=== PATIENT | male | born 1975 | race Two or more races ===

== ENCOUNTER 2016-07-01 20:08 | Emergency (ER) | payer OTHER ==
[~2016-07-01] VITALS: Ht 170.2 cm; Wt 82.6 kg
[2016-07-01 20:36] VITALS: BP 113/79
--- NOTE | 2016-07-01 21:13 | PHYS DOC ---
Past Medical History Past Medical History: No Pertinent History Past Surgical History: No Surgical History Alcohol Use: Rarely Drug Use: None Adult General Chief Complaint Chief Complaint: FOOT INJURY PAIN [facility] HPI Patient is a 41 year old male presents to the emergency department stating that he has having right ankle pain and discomfort. He denies any trauma or injury. He states that he has increased pain when standing. He has not taken anything for pain and discomfort. Patient does have good sensation to the toes peripheral pulses 2+ cap refill brisk less than 2 seconds. Patient has not taken anything at home for pain and discomfort. His been occurring for the last 5 days. All information was obtained through network strategist at bedside. Review of Systems Review of Systems Constitutional: Denies fever or chills [] Eyes: Denies change in visual acuity, redness, or eye pain [] HENT: Denies nasal congestion or sore throat [] Respiratory: Denies cough or shortness of breath [] Cardiovascular: No additional information not addressed in HPI [] GI: Denies abdominal pain, nausea, vomiting, bloody stools or diarrhea [] : Denies dysuria or hematuria [] Musculoskeletal: Denies back pain. Right ankle pain and discomfort Integument: Denies rash or skin lesions [] Neurologic: Denies headache, focal weakness or sensory changes [] Allergies Allergies Allergies Coded Allergies Type Severity Reaction Last Updated Verified No Known Drug Allergies 07/01/16 No Physical Exam Physical Exam Constitutional: Well developed, well nourished, no acute distress, non-toxic appearance. [] HENT: Normocephalic, atraumatic, bilateral external ears normal, oropharynx moist, no oral exudates, nose normal. [] Eyes: PERRLA, EOMI, conjunctiva normal, no discharge. [] Neck: Normal range of motion, no tenderness, supple, no stridor. [] Cardiovascular:Heart rate regular rhythm, no murmur [] Lungs & Thorax: Bilateral breath sounds clear to auscultation [] Abdomen: Bowel sounds normal, soft, no tenderness, no masses, no pulsatile masses. [] Skin: Warm, dry, no erythema, no rash. [] Back: No tenderness Extremities: Right lateral ankle tenderness, no cyanosis, no clubbing, ROM intact, no edema. Peripheral pulses 2+ cap refill brisk < 2 seconds. Patient with movement of right ankle noted. No bruising or discoloration noted. Slight lateral swelling noted. Neurologic: Alert and oriented X 3, normal motor function, normal sensory function, no focal deficits noted. [] Psychologic: Affect normal, judgement normal, mood normal. [] Current Patient Data Vital Signs Vital Signs Date Time Temp Pulse Resp B/P Pulse Ox O2 Delivery O2 Flow Rate FiO2 07/01/16 20:36 98.2 80 18 97 Room Air 98.2 EKG EKG [] Radiology/Procedures Radiology/Procedures [] Course & Med Decision Making Course & Med Decision Making Pertinent Labs and Imaging studies reviewed. (See chart for details) Sutures were negative for any bony abnormalities. Patient will be placed in Idego wrap and an Air-Stirrup splint. Recommendations for Tylenol and ibuprofen for pain and discomfort ice packs on 20 minutes off 20 minutes several times a day. Recommended wearing the Diego wrap for the next 5-7 days the Air-Stirrup splint for the next 7-10 days. Recommended following up with orthopedic within the next week. Signs symptoms to return back to emergency department as been provided. [] Dragon Disclaimer Dragon Disclaimer This electronic medical record was generated, in whole or in part, using a voice recognition dictation system. Departure Departure Impression: Primary Impression: Right ankle sprain Disposition: 01 HOME, SELF-CARE Condition: STABLE Referrals: JORGE JOHNSON MD (PCP) MONROE TENA MD Patient Instructions: Ankle Sprain, [id number] Additional Instructions: Activity as tolerated Tylenol or Ibuprofen for pain and discomfort Ice packs on 20 minutes and off 20 minutes several times a day. Wear the Diego wrap for the next 7 days. There start splint for the next 7-10 days. Follow-up with orthopedic in the next week. Return back to emergency department sign symptoms of become worse. NATALIE SARAVIA APRN Jul 01, 2016 21:13
--- NOTE | 2016-07-02 08:20 | RAD ---
Right ankle, 3 views, 07/01/2016: History: Ankle and foot swelling No fracture or dislocation is identified. There is mild soft tissue swelling over the lateral malleolus. IMPRESSION: No acute bony abnormality is detected. Right foot, 3 views, 07/01/2016: No acute fracture or dislocation is identified. There is an old healed fracture of the distal fourth metatarsal. There is mild subcutaneous edema.
== END 2016-07-01 21:47 | disposition home or self-care (01) ==
LOC: ER 20:08
DX: S93.401A Sprain of unspecified ligament of right ankle, initial encounter (principal); X58.XXXA Exposure to other specified factors, initial encounter; Y93.89 Activity, other specified; Y92.89 Other specified places as the place of occurrence of the external cause; Y99.8 Other external cause status
CPT/HCPCS: 29515; 73610; 73630; 99284-25

== ENCOUNTER 2016-08-23 21:10 | Emergency (ER) | payer OTHER ==
[~2016-08-23] VITALS: Ht 170.2 cm; Wt 81.6 kg
[2016-08-23 21:43] VITALS: BP 132/77
[2016-08-23] MEDS ORDERED: NAPR500T8 PO (22:38)
[2016-08-23] MEDS ORDERED: ACET-704 PO (22:38)
--- NOTE | 2016-08-23 22:39 | PHYS DOC ---
Past Medical History Past Medical History: No Pertinent History Past Surgical History: No Surgical History Alcohol Use: Rarely Drug Use: None Adult General Chief Complaint Chief Complaint: THUMB HPI HPI Patient is a 41 year old male who presents with right thumb contusion after his thumb got smashed in a car door. Review of Systems Review of Systems Constitutional: Denies fever or chills [] Eyes: Denies change in visual acuity, redness, or eye pain [] HENT: Denies nasal congestion or sore throat [] Respiratory: Denies cough or shortness of breath [] Musculoskeletal: Right thumb contusion Integument: Denies rash or skin lesions [] Neurologic: Denies headache, focal weakness or sensory changes [] Endocrine: Denies polyuria or polydipsia [] Current Medications Current Medications Current Medications Medications (Trade) Dose Ordered Sig/Jorge L Start Time Stop Time Status Last Admin Dose Admin Acetaminophen/ Hydrocodone Bitart (Lortab 5/325) 1 tab 1X ONCE 08/23/16 23:00 08/23/16 23:01 Allergies Allergies Allergies Coded Allergies Type Severity Reaction Last Updated Verified No Known Drug Allergies 07/01/16 No Physical Exam Physical Exam Constitutional: Well developed, well nourished, no acute distress, non-toxic appearance. [] HENT: Normocephalic, atraumatic, bilateral external ears normal, oropharynx moist, no oral exudates, nose normal. [] Eyes: PERRLA, EOMI, conjunctiva normal, no discharge. [] Skin: Warm, dry, no erythema, no rash. [] Back: No tenderness, no CVA tenderness. [] Extremities: Right thumb with small amount of diffuse soft tissue swelling. 30% subungual ongoing hematoma noted on the right nailbed. Tenderness on palpation of the right distal thumb. Patient able to flex and extend the right thumb. +2 right radial pulse. Adequate radial sensation to the right thumb. Cap refill less than 2 seconds the right thumb. Neurologic: Alert and oriented X 3, normal motor function, normal sensory function, no focal deficits noted. [] Psychologic: Affect normal, judgement normal, mood normal. [] Current Patient Data Vital Signs Vital Signs Date Time Temp Pulse Resp B/P (MAP) Pulse Ox O2 Delivery O2 Flow Rate FiO2 08/23/16 21:43 98.5 85 20 97 Room Air 98.5 EKG EKG [] Radiology/Procedures Radiology/Procedures [] Course & Med Decision Making Course & Med Decision Making Pertinent Labs and Imaging studies reviewed. (See chart for details) Patient is in the ED with right thumb pain after getting it smashed in a car door. Right thumb x-ray was noted for foreign object on the right index finger, patient is aware about this, he states a piece of metal has been in there for a couple years. Otherwise no acute findings. Finger splint was placed in the right thumb by the cadd technician, neurovascular exam done by me is normal, ice elevation encouraged. Naproxen and Tylenol 3 for pain. Follow-up with orthopedic doctor which we provided in a week if pain continues. Dragon Disclaimer Dragon Disclaimer This electronic medical record was generated, in whole or in part, using a voice recognition dictation system. Departure Departure Impression: Primary Impression: Fingertip contusion Additional Impression: Subungual hematoma Disposition: 01 HOME, SELF-CARE Condition: STABLE Referrals: JORGE JOHNSON MD (PCP) LOLY WRIGHT MD follow up in one week Patient Instructions: Contusion, [id number], Subungual Hematoma, [id number] Additional Instructions: You have contusion of the thumb. Wear the splint as tolerated. Ice and elevate the extremity. Follow-up with the provided orthopedic doctor in one week if pain continues. Scripts Naproxen (NAPROXEN) 500 Mg Tablet.dr 1 TAB PO BID, #60 TAB 2 Refills Prov: PITO LEMOS APRN 08/23/16 Acetaminophen With Codeine (TYLENOL WITH CODEINE #3 TABLET) 1 Each Tablet 1 TAB PO PRN Q6HRS Y for PAIN, #30 TAB Prov: PITO LEMOS APRN 08/23/16 Problem Qualifiers Primary Impression: Fingertip contusion Encounter type: initial encounter Qualified Codes: S60.00XA - Contusion of unspecified finger without damage to nail, initial encounter PITO LEMOS APRN August 23, 2016 22:38
[2016-08-23] MEDS ORDERED: HYDROcodone/APAP 5/325MG 1 TAB TABLET PO ONE (23:00)
--- NOTE | 2016-08-24 08:27 | RAD ---
Examination: 3 views of the right thumb History: History of pain in the right thumb Comparison: None available Findings The alignment of the first metacarpophalangeal joint, interphalangeal joint grossly appears unremarkable there is no obvious acute fracture identified. There is a radiopaque density projecting in the soft tissue of the index finger at the level of the middle phalanx could be a foreign body. Impression: 1. No acute osseous findings. 2. There is a radiopaque density projecting in the soft tissue of the index finger at the level of the middle phalanx could be a foreign body. Patient is aware of findings per note.
== END 2016-08-23 22:40 | disposition home or self-care (01) ==
LOC: ER 21:10
DX: S60.011A Contusion of right thumb without damage to nail, initial encounter (principal); W23.0XXA Caught, crushed, jammed, or pinched between moving objects, initial encounter; Y93.89 Activity, other specified; Y92.89 Other specified places as the place of occurrence of the external cause; Y99.8 Other external cause status
CPT/HCPCS: 29130; 73140; 99284-25